=== PATIENT | male | born 1980 | race Caucasian/White ===

== ENCOUNTER 2018-12-29 23:30 | Emergency (ER) | payer SELFPAY | END 2018-12-30 01:00 | disposition left against medical advice (07) | LOC: ED 23:30 | DX: Z53.21 Procedure and treatment not carried out due to patient leaving prior to being seen by health care provider (principal) ==

== ENCOUNTER 2019-01-05 12:17 | Emergency (ER) | payer SELFPAY ==
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
[2019-01-05 12:27] VITALS: BP 108/61
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
== END 2019-01-05 13:38 | disposition home or self-care (01) ==
LOC: ED 12:17
DX: I42.2 Other hypertrophic cardiomyopathy (principal); R07.89 Other chest pain; F17.200 Nicotine dependence, unspecified, uncomplicated; Z79.899 Other long term (current) drug therapy; V87.7XXA Person injured in collision between other specified motor vehicles (traffic), initial encounter; Y93.89 Activity, other specified; Y92.488 Other paved roadways as the place of occurrence of the external cause; Y99.8 Other external cause status
CPT/HCPCS: 71046; 93005; 93010; 99283